=== PATIENT | male | born 1990 | race Caucasian/White ===

== ENCOUNTER 2016-10-21 03:24 | Emergency (ER) | payer OTHER ==
--- NOTE | 2016-10-21 06:10 | REP ---
Clinical: Shortness of breath . Comparison: None . Technique: PA and lateral. Findings: The mediastinum and cardiac silhouette are normal. The lung arboleda are clear and without acute consolidation, effusion, or pneumothorax. The skeletal structures are intact and normal. Impression: 1. No acute cardiopulmonary process. Signed by Amaury Velásquez MD 10/21/2016 06:02 A
[2016-10-21] MEDS ORDERED: TUSSSUS6 PO (06:16)
[2016-10-21] MEDS ORDERED: ALBU17IN2 INH (06:16)
[2016-10-21] MEDS ORDERED: PRED20TA PO (06:16)
[2016-10-21 06:23] VITALS: BP 157/81
[2016-10-21] MEDS ORDERED: predniSONE 20 MG TAB PO ONE (06:30)
== END 2016-10-21 06:30 | disposition home or self-care (01) ==
LOC: M ED 03:47
DX: J40 Bronchitis, not specified as acute or chronic (principal); F17.200 Nicotine dependence, unspecified, uncomplicated